=== PATIENT | female | born 1995 | race Caucasian/White ===

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

== ENCOUNTER 2017-06-11 12:50 | Inpatient (IN) | payer OTHER ==
[2017-06-11] MEDS ORDERED: AMPICILLIN - 2 GM in SODIUM CHLORIDE 100 ML IVPB SCH (13:15)
[2017-06-11] MEDS ORDERED: TUBERCULIN PPD 5 TU/0.1ML SYRINGE (IN PATIENT USE ONLY) ID ONE (13:23)
[2017-06-11] MEDS ORDERED: BUTORPHANOL TARTRATE 1 MG/ML VIAL IVPUSH ONE (13:30)
[2017-06-11] MEDS ORDERED: PROMETHAZINE HCL 25 MG/1 ML VIAL IVPUSH ONE (13:30)
[2017-06-11] MEDS ORDERED: AMPICILLIN SODIUM 2 GM VIAL ONE (13:52)
[2017-06-11] MEDS ORDERED: PROMETHAZINE HCL 25 MG/1 ML VIAL ONE (13:52)
[2017-06-11] MEDS ORDERED: BUTORPHANOL TARTRATE 1 MG/ML VIAL ONE ×2 (13:52)
[2017-06-11] MEDS ORDERED: DEXTROSE 5%-LACTATED RINGERS 1,000 ML IV SCH (14:15)
[2017-06-11 14:23] LABS: BASO % 0.3 % (0-2.0); EOS % 0.4 % (0-4.5); HEMATOCRIT 36.9 % (32.4-45.2); HEMOGLOBIN 12.1 GM/dL (10.7-15.3); LYMPH % 12.1 % (8-40); MCH 31.2 pg (25.7-33.7); MCHC 32.9 g/dl (32.0-36.0); MEAN CELL VOLUME 94.8 fl (80-96); MEAN PLT VOLUME 8.5 fl (7.5-11.1); MONO % 5.8 % (3.8-10.2); NEUT % 81.4 % (42.8-82.8); PLATELET COUNT 274 K/MM3 (134-434); RBC 3.89 M/mm3 (3.60-5.2); WHITE BLOOD COUNT 10.5 K/mm3 (4.0-10.0)
[2017-06-11 14:31] VITALS: BMI 27.8
[2017-06-11 14:38] LABS: INR 0.97 (0.82-1.09)
[2017-06-11 14:52] LABS: ANION GAP 7 (8-16); BLOOD UREA NITROGEN 7 mg/dL (7-18); CALCIUM 8.6 mg/dL (8.5-10.1); CHLORIDE 105 mmol/L (98-107); CO2 27 mmol/L (21-32); CREATININE 0.7 mg/dL (0.55-1.02); GLUCOSE,RANDOM 127 mg/dL (74-106); POTASSIUM 3.7 mmol/L (3.5-5.1); SODIUM 139 mmol/L (136-145)
[2017-06-11] MEDS: ELECTROLYTE-148 SOLN 1,000 ML IV SCH (17:15)
[2017-06-11] MEDS: AMPICILLIN - 1 GM in SODIUM CHLORIDE 100 ML IVPB SCH ×2 (17:15→21:15)
[2017-06-11] MEDS ORDERED: FENTANYL/BUPIVACAINE/NS/PF - PCEA - 50 ML DISP.SYRIN EP ONE (20:08)
--- NOTE | 2017-06-11 20:24 | HP ---
Past Medical History - Primary Care Physician PCP:: Tray Treviño - Admission Chief Complaint: 21yo P0 with at EGA 40w 3d admitted with spontaneous labor. Pt with poor pain tolerance and required pain management. History of Present Illness: Painful contractions since this afternoon. 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's, CVA, Dementia, Migraine, Multiple Sclerosis, Peripheral Neuropathy, Parkinson's, Seizure, Syncope, TIA, Vertigo, Other Cardiovascular: No: AFIB, Aneurysm, Aortic Insufficiency, Aortic Stenosis, CAD, CHF, Deep Vein Thrombosis, HTN, Hyperlipdemia, [place], Mitral Insufficiency, Mitral Stenosis, Murmur, Pulmonary Hypertension, Other Pulmonary: No: Asthma, Bronchitis, Cancer, COPD, O2 Dependent, Pneumonia, Previously Intubated, Pulmonary Embolus, Pulmonary Fibrosis, Sleep Apnea, Other Gastrointestinal: No: Ascites, Cancer, Constipation, Crohn's Disease, Diverticulitis, Diverticulosis, Esophageal Varices, Gastritis, GERD, GI Bleed, Hemorrhoids, Hiatal Hernia, Inflamatory Bowel Disease, Irritable Bowel Disease, Pancreatitis, Peptic Ulcer Disease, Ulcerative Colitis, Other Hepatobiliary: No: Cirrhosis, Cholelithiasis, Cholecystitis, Choledocholithiasis , Hepatitis A, Hepatitis B, Hepatitis C, Other Renal/: No: Renal Failure, Renal Inusuff, BPH, Cancer, Hematuria, Hemodialysis , Neurogenic Bladder, Renal Calculi, UTI, Other Reproductive: No: Ectopic , Endometriosis, Fibroids, PID, Polycystic Ovary Syndrome, Postmenopausal, Other ...: 1 ...Para: 0 ...LMP: 09/06/16 ... Weeks Gestation by Dates: 40.3 ...EDC by Dates: 06/13/17 ...EDC by Sono: 06/08/17 Heme/Onc: No: Anemia, B12 Deficiency, Bleeding Disorder, Cancer, Current Chemotherapy, Current Radiation Therapy, Hemochromatosis, Hypercoaguable State, Myeloproliferative Synd, Sickle Cell Disease, Sickle Cell Trait, Thrombocytopenia, Other Infectious Disease: No: AIDS, C-Diff, Herpes Zoster, HIV, MRSA, STD's, Tuberculosis, VREF, Other Psych: No: Addictions, Anxiety, Bipolar, Depression, Panic, Psychosis, Schizophrenia, Other Musculoskeletal: No: Bursitis, Chronic low back pain, Hemiparesis, Hemiplegia, Osteoarthritis, Paraplegia, Other Rheumatology: No: Fibromyalgia, Gout, Lupus, Rheumatoid Arthritis, Sarcoidosis, Vasculitis, Other ENT: No: Allergic Rhinitis, Sinusitis, Other Dermatology: No: Basal Cell, Cellulitis, Eczema, Melanoma, Psoriasis, Squamous Cell, Other - Past Surgical History Past Surgical History: Yes: None Hx Myomectomy: No Hx Transabdominal Cerclage: No - Smoking History Smoking history: Former smoker Have you smoked in the past 12 months: No Aproximately how many cigarettes per day: 0 If you are a former smoker, when did you quit?: 10/2014 - Alcohol/Substance Use Hx Alcohol Use: No History of Substance Use: reports: None - Social History Usual Living Arrangement: Yes: With Parent ADL: Independent History of Recent Travel: No Home Medications - Allergies Allergies/Adverse Reactions: Allergies Allergy/AdvReac Type Severity Reaction Status Date / Time shellfish derived Allergy Hives Verified 04/13/17 14:13 - Home Medications Home Medications: Ambulatory Orders NK [No Known Home Medication] 10/18/16 Family Disease History - Family Disease History Family History: Unremarkable Review of Systems - Review of Systems Constitutional: reports: Other (painful contractions) Eyes: reports: No Symptoms HENT: reports: No Symptoms Neck: reports: No Symptoms Cardiovascular: reports: No Symptoms Respiratory: reports: No Symptoms Gastrointestinal: reports: No Symptoms Genitourinary: reports: No Symptoms Breasts: reports: No Symptoms Reported Musculoskeletal: reports: No Symptoms Integumentary: reports: No Symptoms Neurological: reports: No Symptoms Endocrine: reports: No Symptoms Hematology/Lymphatic: reports: No Symptoms Psychiatric: reports: No Symptoms Pain Intensity: 9 Physical Exam - Maternity Vital Signs: Vital Signs Temperature 98.1 F 06/11/17 18:00 Pulse Rate 82 06/11/17 20:00 Respiratory Rate 18 06/11/17 20:00 Blood Pressure 106/63 06/11/17 20:00 O2 Sat by Pulse Oximetry (%) Constitutional: Yes: Well Nourished, No Distress, Calm Eyes: Yes: WNL, Conjunctiva Clear HENT: Yes: WNL, Atraumatic, Normocephalic Neck: Yes: WNL, Supple, Trachea Midline Cardiovascular: Yes: WNL, Regular Rate and Rhythm Lungs: Clear to auscultation, Normal air movement - Abdominal Exam/OB Fundal Height: 39 Number of Fetuses: Single Presentation: Vertex Contractions: Yes Regularity: Irregular Intensity: Mild/Mod Monitor Mode: External Heart Rate (range): 140 Heart Rate Location: Midline Category: I Accelerations: Non-Uniform Decelerations: None - Vaginal Exam/OB Vaginal Bleediing: No Speculum Exam: No Dilatation (cm): 2 Presentation: Vertex/Position - Physical Exam Musculoskeletal: Yes: WNL Extremities: Yes: WNL Edema: No Integumentary: Yes: WNL ...Motor Strength: WNL Psychiatric: Yes: WNL, Alert, Oriented - Labs Lab Results: CBC, BMP 06/11/17 13:54 06/11/17 13:54 Hemorrhage Risk Assessment - Risk Factors Medium Risk Factors: Yes: None High Risk Factors: Yes: None Risk Score: 1 Risk Level: Medium Risk Imaging - Results Ultrasound: Report Reviewed Assessment/Plan 21yo P0 with at EGA 40w 3d admitted with spontaneous labor. Pt with poor pain tolerance and required pain management. The pt was offered IV sedation which she requested. Plan to monitor labor progress.
[2017-06-11] MEDS: FENTANYL/BUPIVACAINE/NS/PF - PCEA - 50 ML DISP.SYRIN EP SCH (20:50)
[2017-06-11] MEDS ORDERED: NALOXONE HCL 0.4 MG/ML VIAL IVPUSH PRN (21:00)
--- NOTE | 2017-06-11 21:43 | PN ---
Ante-Partal Exam - Subjective Subjective: No complaints, s/p epidural Vital Signs: Vital Signs Temperature 98.1 F 06/11/17 18:00 Pulse Rate 82 06/11/17 20:00 Respiratory Rate 18 06/11/17 20:00 Blood Pressure 106/63 06/11/17 20:00 O2 Sat by Pulse Oximetry (%) Bleeding: No Headache: No Visual changes: No Right upper quadrant pain: No Pain (scale 1-10): 0 - Contractions Contractions: Yes Regularity: Irregular Intensity: Mild/Mod Monitor Mode: External - Exam during Labor Heart Rate: 150 Variability: Moderate Heart Rate Location: Midline Category: I Monitor Accelerations: Present Monitor Decelerations: None Exam: Vaginal Dilatation (cm): 2 Effacement (%): 80 Amniotic Membrane Status: Intact Presentation: Vertex Station: -2 - Intrapartum Hemorrhage Risk Medium Risk Factors: None High Risk Factors: None Risk Score: 0 Risk Level: Low Risk - Assessment/Plan Assessment/Plan: 21yo P0 with spontaneous latent labor. Minimal cervical change since admission. Contractions are irregular. Plan to start pitocin. Fetus with Category I tracing
[2017-06-11] MEDS ORDERED: OXYTOCIN 15 UNITS/ LR 250 ML 15 UNIT/250 ML INFUS.BAG IVPB SCH (21:45)
[2017-06-12] MEDS ORDERED: FENTANYL/BUPIVACAINE/NS/PF - PCEA - 50 ML DISP.SYRIN EP ONE ×2 (00:23→04:39)
[2017-06-12] MEDS: FENTANYL/BUPIVACAINE/NS/PF - PCEA - 50 ML DISP.SYRIN EP SCH ×2 (00:27→04:41)
[2017-06-12] MEDS: ELECTROLYTE-148 SOLN 1,000 ML IV SCH (01:06)
[2017-06-12] MEDS: AMPICILLIN - 1 GM in SODIUM CHLORIDE 100 ML IVPB SCH ×2 (01:15→05:15)
--- NOTE | 2017-06-12 03:37 | PN ---
Ante-Partal Exam - Subjective Subjective: Pt had a spontaneous bradycardia x 5min. Pt has not been on Pitocin and is braden spontaneously. Oxygen had been administered by mask. Positional changes were done to treat bradycardia with good response. BP 116/65. Vital Signs: Vital Signs Temperature 98.9 F 06/12/17 03:00 Pulse Rate 64 06/12/17 01:45 Respiratory Rate 18 06/12/17 01:45 Blood Pressure 115/50 06/12/17 01:45 O2 Sat by Pulse Oximetry (%) 100 06/12/17 01:45 Bleeding: No Headache: No Visual changes: No Right upper quadrant pain: No Pain (scale 1-10): 0 - Contractions Contractions: Yes Regularity: Regular (q2-3min) Intensity: Unaware Monitor Mode: External (AROM done and FSE applied) - Exam during Labor Heart Rate: 140 Variability: Moderate Exam: Vaginal Dilatation (cm): 7 Effacement (%): 90 Amniotic Membrane Status: Ruptured (AROM) Amniotic Fluid: Clear Presentation: Vertex Station: -2 Remarks: FSE applied, FHR recovered to normal - Intrapartum Hemorrhage Risk Medium Risk Factors: None High Risk Factors: None Risk Score: 0 Risk Level: Low Risk - Assessment/Plan Assessment/Plan: 21yo P0 in spontaneous active labor. Bradycardia x 5min recovered with positional changes. Plan to monitor tracing and labor progress.
[2017-06-12] MEDS ORDERED: ELECTROLYTE-148 SOLN 500 ML IV ONE (06:30)
[2017-06-12] MEDS ORDERED: OXYTOCIN 20 UNITS in 0.9% NS 20 UNIT/1,000 ML INFUS.BAG IV ONE (07:04)
[2017-06-12] MEDS ORDERED: LIDOCAINE HCL 1% PRESERVATIVE FREE - 30ML VIAL ONE (07:06)
[2017-06-12] MEDS ORDERED: ELECTROLYTE-148 SOLN 500 ML IV SCH (07:30)
[2017-06-12 08:26] LABS: ARTERIAL BLOOD GAS PCO2 66.2 mmHg (35-45); ARTERIAL BLOOD GAS PO2 15.7 mmHg (80-100); ARTERIAL BLOOD GAS pH 7.23 (7.35-7.45)
[2017-06-12 08:27] LABS: VENOUS PH 7.3 (7.32-7.42)
[2017-06-12 08:28] LABS: VENOUS PC02 53.4 mmHg (38-52); VENOUS PO2 19.3 mmHg (28-48)
[2017-06-12] MEDS ORDERED: TUBERCULIN PPD 5 TU/0.1ML SYRINGE (IN PATIENT USE ONLY) ID ONE (08:30)
[2017-06-12] MEDS ORDERED: BENZOCAINE 20% 57 GM BOTTLE TP PRN (09:11)
[2017-06-12] MEDS ORDERED: ACETAMINOPHEN 325 MG TABLET (FP) PO PRN (09:11)
[2017-06-12] MEDS ORDERED: BISACODYL 10 MG SUPP.RECT RC PRN (09:11)
[2017-06-12] MEDS ORDERED: METHYLERGONOVINE MALEATE 0.2 MG/1 ML AMP IM PRN (09:11)
[2017-06-12] MEDS ORDERED: WITCH HAZEL 50% (TUCKS) 40 PAD/JAR PAD TP PRN (09:11)
[2017-06-12] MEDS ORDERED: BENZOCAINE 28 GM HEMORRHOIDAL OINTMENT TP PRN (09:11)
--- NOTE | 2017-06-12 09:13 | PN ---
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 Tight Nuchal cord x 1.
[2017-06-12] MEDS ORDERED: OXYTOCIN 20 UNITS in 0.9% NS 20 UNIT/1,000 ML INFUS.BAG IV SCH (09:15)
[2017-06-12] MEDS: PRENATAL VITAMINS W/ FOLIC ACID TABLET (FP) PO SCH (11:53)
[2017-06-13 07:39] LABS: BASO % 0.3 % (0-2.0); EOS % 1.5 % (0-4.5); HEMATOCRIT 33.4 % (32.4-45.2); HEMOGLOBIN 10.9 GM/dL (10.7-15.3); LYMPH % 20.5 % (8-40); MCH 31.1 pg (25.7-33.7); MCHC 32.6 g/dl (32.0-36.0); MEAN CELL VOLUME 95.4 fl (80-96); MONO % 6.7 % (3.8-10.2); PLATELET COUNT 237 K/MM3 (134-434); RDW 13.2 % (11.6-15.6)
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
[2017-06-13] MEDS: PRENATAL VITAMINS W/ FOLIC ACID TABLET (FP) PO SCH (10:33)
[2017-06-13] MEDS: IBUPROFEN 600 MG TABLET (FP) PO PRN ×2 (11:57→18:50)
[2017-06-13] MEDS ORDERED: SENNOSIDES/DOCUSATE COMBO (SENNA PLUS) TABLET (UD) PO PRN (22:00)
[2017-06-14 00:05] VITALS: PULSE 61
--- NOTE | 2017-06-14 08:20 | DS ---
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: Vital Signs Temperature 98.3 F 06/13/17 22:00 Pulse Rate 61 06/13/17 22:00 Respiratory Rate 20 06/13/17 22:00 Blood Pressure 121/64 06/13/17 22:00 O2 Sat by Pulse Oximetry (%) 99 06/12/17 07:00 Constitutional: Yes: Well Nourished, No Distress, Calm Eyes: Yes: WNL, Conjunctiva Clear, EOM Intact HENT: Yes: WNL, Atraumatic, Normocephalic Neck: Yes: WNL, Supple, Trachea Midline Cardiovascular: Yes: WNL, Regular Rate and Rhythm Respiratory: Yes: WNL, Regular, CTA Bilaterally Gastrointestinal: Yes: WNL, Normal Bowel Sounds, Soft ...Rectal Exam: Yes: Deferred Renal/: Yes: WNL ....Post : Yes: Uterus firm, Uterus non-tender, Slight lochia rubra Breast(s): Yes: WNL Musculoskeletal: Yes: WNL Extremities: Yes: WNL Integumentary: Yes: WNL Neurological: Yes: WNL, Alert, Oriented ...Motor Strength: WNL Psychiatric: Yes: WNL, Alert, Oriented Labs: CBC, BMP 06/13/17 07:00 06/11/17 13:54 Delivery - Delivery Vaginal Delivery: No Problems, Spontaneous Type of Anesthesia: Epidural Episiotomy/Laceration: None EBL (cc): 300 Delivery, Single - Stages of Labor Date 1st Stage Initiatied: 06/11/17 Time 1st Stage Initiated: 14:00 Date 2nd Stage Initiated: 06/12/17 Time 2nd Stage Initiated: 07:15 Date of Delivery: 06/12/17 Time of Delivery: 07:37 Time Placenta Delivered: 07:45 Placenta: Yes: Spontaneous, Normal Configuration - Condition of 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 Tight Nuchal cord x 1. Discharge Summary Reason For Visit: LABOR Post term Procedures: Principal: Hospital Course: Normal recovery Condition: Good - Instructions Diet, Activity, Other Instructions: Physical activity Resume your normal everyday activity as tolerated no heavy lifting or exercise until seen by your surgeon. You may walk unlimited zohra of and climb stairs. You may resume driving the car when you feel safe and comfortable behind the wheel. No sexual activity as instructed. Wound care If you have a bandage, leave it on, and keep dry for 48-72 hours. After that time discard the outer bandage. If they are tapes on the skin under the out of bandage leave them in place. They will peel off in the next 7 to 10 days. Do Not Peel them off. You may shower the day after surgery. If there are tapes present on the skin, you may shower over them. Diet There are no dietary restrictions. Eat healthy, high-fiber foods. Drink 6 to 8 glasses of liquid each day. This will assist in keeping your bowels are regular. Pain management You may take Tylenol or acetaminophen or Ibuprofen (for example, Motrin, Advil etc.) from my pain prescription medication is ordered should be taken as prescribed for moderate to severe pain. Call MD for any of the following: Severe pain not relieved by medication Fever of 101 or higher Excessive bleeding or drainage on dressing Inability to urinate Referrals: Tray Treviño MD [Staff Physician] - Disposition: HOME - Home Medications Comprehensive Discharge Medication List: Ambulatory Orders Ibuprofen [Motrin -] 600 mg PO QID #28 tablet 06/13/17
[2017-06-14 09:03] VITALS: BP 113/53; TEMP 97.9
[2017-06-14] MEDS: PRENATAL VITAMINS W/ FOLIC ACID TABLET (FP) PO SCH (09:17)
== END 2017-06-14 12:50 | disposition home or self-care (01) | DRG 775 ==
LOC: JLDR 12:50 → J3W 06-12 10:05
PROVIDERS: ADMIT Obstetrics & Gynecology; ATTEND Obstetrics & Gynecology
PROC: 10E0XZZ Delivery of Products of Conception, External Approach (ICD-10-PCS; principal; 2017-06-12)
DX: O48.0 Post-term pregnancy (principal); O69.1XX0 Labor and delivery complicated by cord around neck, with compression, not applicable or unspecified; O26.893 Other specified pregnancy related conditions, third trimester; Z87.891 Personal history of nicotine dependence; Z3A.40 40 weeks gestation of pregnancy; Z37.0 Single live birth
CPT/HCPCS: 36415; 36600; 59409; 80048; 82803; 85025; 85610; 85730; 86593; 86850; 86900; 86901

== ENCOUNTER 2018-05-11 21:14 | Emergency (ER) | payer SELFPAY ==
[2018-05-11] MEDS ORDERED: IBUPROFEN 600 MG TABLET (FP) PO ONE ×2 (21:31→21:34)
[2018-05-11 21:34] VITALS: BP 128/53; PULSE 96; TEMP 100; BMI 23.5
--- NOTE | 2018-05-11 21:34 | PDOC ---
Rapid Medical Evaluation Time Seen by Provider: 05/11/18 21:29 Medical Evaluation: Allergies Allergy/AdvReac Type Severity Reaction Status Date / Time shellfish derived Allergy Hives Verified 04/13/17 14:13 05/11/18 21:32 The patient presents with a chief complaint of: fever, chills, throat and ear pain since this am, also w/ intermittent back pain I have performed a brief in-person evaluation of this patient; Pertinent physical exam findings: 100.0 oral temp, mild erythema to post 3+ tonsils I have ordered the following: ua, ucx, rapid strep, influenza, motrin The patient will proceed to the ED for further evaluation. Discharge Disposition - Diagnosis Throat pain - Referrals - Patient Instructions - Post Discharge Activity
[2018-05-11 21:53] LABS: URINE APPEARANCE CLEAR; URINE BILIRUBIN NEGATIVE (<2.0 mg/dL); URINE COLOR YELLOW; URINE GLUCOSE (UA) NEGATIVE (NEGATIVE); URINE KETONE NEGATIVE (NEGATIVE); URINE LEUK ESTERASE NEGATIVE (NEGATIVE); URINE NITRITE NEGATIVE (NEGATIVE); URINE PROTEIN NEGATIVE (NEGATIVE)
[2018-05-11] MEDS ORDERED: SODIUM CHLORIDE 1,000 ML IV STA (22:06)
--- NOTE | 2018-05-11 22:42 | PDOC ---
History of Present Illness - General Chief Complaint: Lightheaded Stated Complaint: EAR ACHE Time Seen by Provider: 05/11/18 21:29 History Source: Patient Exam Limitations: No Limitations - History of Present Illness Initial Comments: 05/11/18 22:43 Best Contact: PCP: Dr. Maddy Jimenez Pmhx: Denies Pshx: Denies Allergies: NKDA FH:N/A Social Hx: Cigarettes/ Denies Alcohol/ Denies Drugs/Denies LMP: 04/21/2018 22-year-old female presents to the emergency department complaining of left- sided air ache with a sore throat 2 days with subjective fever but denies chills, nausea/vomiting, headache, dizziness, lightheadedness, facial pains, difficulty swallowing, neck stiffness/pain, back pains, chest pain, shortness of breath, abdominal pains, flank pains, urinary symptoms: Frequency/urgency/ hesitancy, hematuria, extremity numbness or tingling sensation. Patient states she was given ibuprofen 600 mg and feels a lot better. Patient is currently living in a long-term with her [id number] baby and her baby's father who she says are not sick. Patient states she hasn't been drinking and eating enough today but felt a lot better after having some apple juice that she brought to the emergency department. Past History - Past Medical History Allergies/Adverse Reactions: Allergies Allergy/AdvReac Type Severity Reaction Status Date / Time shellfish derived Allergy Hives Verified 04/13/17 14:13 Home Medications: Ambulatory Orders Ibuprofen [Motrin -] 600 mg PO QID #28 tablet 06/13/17 Asthma: No Cancer: No Cardiac Disorders: No COPD: No Diabetes: No HTN: No Seizures: No Thyroid Disease: No - Immunization History Immunization Up to Date: Yes - Suicide/Smoking/Psychosocial Hx Smoking Status: No Smoking History: Never smoked Have you smoked in the past 12 months: No Number of Cigarettes Smoked Daily: 0 If you are a former smoker, when did you quit?: 10/2014 Information on smoking cessation initiated: No Hx Alcohol Use: No Drug/Substance Use Hx: No Substance Use Type: None Hx Substance Use Treatment: No Review of Systems - Review of Systems Able to Perform ROS?: Yes Comments:: 05/11/18 22:46 CONSTITUTIONAL: Absent: fever, chills, diaphoresis, generalized weakness, malaise, loss of appetite HEENT: Left earache, throat pain Absent: rhinorrhea, nasal congestion, throat swelling, difficulty swallowing, mouth swelling,eye pain, visual Changes CARDIOVASCULAR: Absent: chest pain, loss of consciousness, palpitations, irregular heart rate, peripheral edema RESPIRATORY: Absent: cough, shortness of breath, dyspnea with exertion, orthopnea, wheezing, stridor, hemoptysis GASTROINTESTINAL: Absent: abdominal pain, abdominal distension, nausea, vomiting, diarrhea, constipation, melena, hematochezia GENITOURINARY: Absent: dysuria, frequency, urgency, hesitancy, hematuria, flank pain, genital pain MUSCULOSKELETAL: Absent: myalgia, arthralgia, joint swelling SKIN: Absent: rash, itching, pallor HEMATOLOGIC/IMMUNOLOGIC: Absent: easy bleeding, easy bruising, lymphadenopathy, frequent infections ENDOCRINE: Absent: unexplained weight gain, unexplained weight loss, heat intolerance, cold intolerance NEUROLOGIC: Absent: headache, focal weakness or paresthesias, dizziness, unsteady gait, seizure, mental status changes, bladder or bowel incontinence PSYCHIATRIC: Absent: anxiety, depression, suicidal or homicidal ideation, hallucinations. Is the patient limited Kazakh proficient: No *Physical Exam - Vital Signs Last Vital Signs Temp Pulse Resp BP Pulse Ox 100 F H 96 H 18 128/53 L 100 05/11/18 21:30 05/11/18 21:30 05/11/18 21:30 05/11/18 21:30 05/11/18 21:30 - Physical Exam Comments: 05/11/18 22:47 GENERAL: Well developed, well nourished. Awake and alert. No acute distress. HEENT: Tonsillar erythema with mild swelling, neg kissing tonsils Normocephalic, atraumatic. PERRLA, EOMI. No conjunctival pallor. Sclera are non- icteric. Moist mucous membranes. NECK: Supple. Full ROM. No JVD. Carotid pulses 2+ and symmetric, without bruits. No thyromegaly. No lymphadenopathy. CARDIOVASCULAR: Regular rate and rhythm. No murmurs, rubs, or gallops. Distal pulses are 2+ and symmetric. PULMONARY: No evidence of respiratory distress. Lungs clear to auscultation bilaterally. No wheezing, rales or rhonchi. ABDOMINAL: Soft. Non-tender. Non-distended. No rebound or guarding. No organomegaly. Normoactive bowel sounds. MUSCULOSKELETAL Normal range of motion at all joints. No bony deformities or tenderness. No CVA tenderness. EXTREMITIES: No cyanosis. No clubbing. No edema. No calf tenderness. SKIN: Warm and dry. Normal capillary refill. No rashes. No jaundice. NEUROLOGICAL: Alert, awake, appropriate. Cranial nerves 2-12 intact. No deficits to light touch and temperature in face, upper extremities and lower extremities. No motor deficits in the in face, upper extremities and lower extremities. Normoreflexic in the upper and lower extremities. Normal speech. Toes are down- going bilaterally. Gait is normal without ataxia. PSYCHIATRIC: Cooperative. Good eye contact. Appropriate mood and affect. Moderate Sedation - Procedure Monitoring Vital Signs: Procedure Monitoring Vital Signs Temperature 100 F H 05/11/18 21:30 Pulse Rate 96 H 05/11/18 21:30 Respiratory Rate 18 05/11/18 21:30 Blood Pressure 128/53 L 05/11/18 21:30 O2 Sat by Pulse Oximetry (%) 100 05/11/18 21:30 ED Treatment Course - ADDITIONAL ORDERS Additional order review: Laboratory Results 05/11/18 21:42 Urine Color Yellow Urine Appearance Clear Urine pH 6.0 Ur Specific [place] 1.026 Urine Protein Negative Urine Glucose (UA) Negative Urine Ketones Negative Urine Blood Negative Urine Nitrite Negative Urine Bilirubin Negative Urine Urobilinogen 2.0 H Ur Leukocyte Esterase Negative - Medications Given in the ED: ED Medications Discontinued Medications Generic Name Dose Route Start Last Admin Trade Name Freq PRN Reason Stop Dose Admin Ibuprofen 600 mg 05/11/18 21:31 05/11/18 21:44 Motrin - PO 05/11/18 21:32 600 mg ONCE ONE Administration *DC/Admit/Observation/Transfer Diagnosis at time of Disposition: Throat pain, Earache on left - Discharge Dispostion Disposition: HOME Condition at time of disposition: Stable Decision to Admit order: No - Referrals Referrals: Celestine Balderas MD [Staff Physician] - Samm Cespedes MD [Staff Physician] - - Patient Instructions Printed Discharge Instructions: DI for Ear Pain-Adult, DI for Viral Pharyngitis Additional Instructions: Tylenol alternating with Motrin every 6 hours as needed for pain/fever Increase fluids Follow up with ENT/Dr. Coy as listed on your discharge this week Return back to the ER for severe/persistent or worsening symptoms As per our discussion, you will be returning to your mother's home so she can help you with your baby and make sure you take enough fluids. - Post Discharge Activity Progress Note - Progress Note Progress Note: Patient states she is not drinking enough fluids and because she lives in the long-term, she will need need to state that she should go home with her mother as per our discussion on the discharge sheet and therefore she will be kicked out of the long-term. Patient states because her urine and rapid strep was negative, she will go home and declined further workup.
== END 2018-05-11 23:15 | disposition home or self-care (01) ==
LOC: JER 21:14
CPT/HCPCS: 81003; 87070; 87086; 87804; 87880; 99283-25

== ENCOUNTER 2018-08-27 12:02 | Inpatient (IN) | payer OTHER ==
[2018-08-27 12:07] VITALS: BMI 23.2
--- NOTE | 2018-08-27 12:51 | PDOC ---
History of Present Illness - General Chief Complaint: Vaginal Bleeding Stated Complaint: MISCARAIGE Time Seen by Provider: 08/27/18 12:50 History Source: Patient Exam Limitations: No Limitations - History of Present Illness Initial Comments: 22 yo F with no reported medical history presents to the ER After her OB doc - Dr. Treviño - suggested she come to the ER to be evaluated for a likely miscarriage. She states that on August 06 she had an US which showed she was 5.5 weeks but there was no heartbeat. She then recently had another US which showed a blood clot between her placenta and the uterus and they suspected an IUFD. The patient has been experiencing a significant amount of nausea and vomiting but reports no difficulty with eating 3 large meals a day. She also endorses awful lower back pain which is anohter reason she wants to be evaluated in the ED. She denies any passage of clots, blood, or any abnormal vaginal discharge. She is unsure of the exact date of her LMP but believes it was in the beginning of May. The patient reports that Dr. Treviño asked to have him paged once she arrive to the ED. She denies having any chest pain, SOB, difficulty breathing, dysuria, frequency , or urgency. LMP: Early May PCP: Dr. 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 NKDA Past History - Past Medical History Allergies/Adverse Reactions: Allergies Allergy/AdvReac Type Severity Reaction Status Date / Time shellfish derived Allergy Hives Verified 08/27/18 12:04 Home Medications: Ambulatory Orders Nitrofurantoin Monohyd/M-Cryst [Macrobid -] 100 mg PO BID #14 capsule 08/27/18 metroNIDAZOLE [Flagyl -] 500 mg PO BID #14 tablet 08/27/18 Asthma: No Cancer: No Cardiac Disorders: No COPD: No Diabetes: No HTN: No Seizures: No Thyroid Disease: No - Reproductive History Is Patient Now?: Yes Cervical CA: No Dysfunctional Uterine Bleeding: No Ectopic : No Endometrial CA: No Polycystic Ovaries: No Therapeutic (s) & number: Yes (1) Tubal Ligation: No - Immunization History Immunization Up to Date: Yes - Suicide/Smoking/Psychosocial Hx Smoking Status: No Smoking History: Never smoked Have you smoked in the past 12 months: No Number of Cigarettes Smoked Daily: 0 If you are a former smoker, when did you quit?: 10/2014 Hx Alcohol Use: No Drug/Substance Use Hx: No Substance Use Type: None Hx Substance Use Treatment: No Review of Systems - Review of Systems Able to Perform ROS?: Yes Comments:: CONSTITUTIONAL: Absent: fever, no chills, no fatigue EYES: Absent: visual changes ENT: Absent: ear pain, no sore throat CARDIOVASCULAR: Absent: chest pain, no palpitations RESPIRATORY: Absent: cough, no SOB GI: Present: Abdominal pain, nausea, vomiting Absent: no constipation, no diarrhea GENITOURINARY: Absent: dysuria, no frequency, no hematuria MUSKULOSKELETAL: Present: Back pain Absent: no arthralgia, no myalgia SKIN: Absent: rash NEURO: Absent: headache *Physical Exam - Vital Signs Last Vital Signs Temp Pulse Resp BP Pulse Ox 98.2 F 62 16 104/52 L 100 08/27/18 12:05 08/27/18 12:05 08/27/18 12:05 08/27/18 12:05 08/27/18 12:05 - Physical Exam Comments: GENERAL: Well-appearing, well-nourished. No apparent distress. HEENT: Normocephalic, atraumatic. PERRL, EOM intact. CARDIOVASCULAR: Normal S1, S2. Regular rate and rhythm. PULMONARY: No evidence of respiratory distress. Lungs clear to auscultation bilaterally. No wheezing, rales or rhonchi. ABDOMEN: There is tenderness in the lower R and L regions of the abdomen. Soft, non- distended. EXTREMITIES: Normal ROM in all four extremities. No gross deformities. SKIN: Warm, dry. No rash NEUROLOGICAL: No focal neurological deficits. Female Pelvic Exam: positive: normal external exam, cervical os closed, normal adnexa, normal size ovaries. negative: CMT, discharge, lesions, Bartholin mass , adnexal tenderness, vaginal bleeding ED Treatment Course - LABORATORY CBC & Chemistry Diagram: 08/27/18 13:57 08/27/18 13:57 Medical Decision Making - Medical Decision Making 22 yo F with no reported medical history presents to the ER After her OB doc - Dr. Treviño - suggested she come to the ER to be evaluated for a likely miscarriage. She states that on August 06 she had an US which showed she was 5.5 weeks but there was no heartbeat. She then recently had another US which showed a blood clot between her placenta and the uterus and they suspected an IUFD. The patient has been experiencing a significant amount of nausea and vomiting but reports no difficulty with eating 3 large meals a day. She also endorses awful lower back pain which is anohter reason she wants to be evaluated in the ED. She denies any passage of clots, blood, or any abnormal vaginal discharge. She is unsure of the exact date of her LMP but believes it was in the beginning of May. The patient reports that Dr. Treviño asked to have him paged once she arrive to the ED. She denies having any chest pain, SOB, difficulty breathing, dysuria, frequency , or urgency. DDx IBNLT: Miscarriage, missed , inevitable , ectopic , molar . Plan: Labs, Urine, TVUS, analgesia, OB consult - Dr. Treviño, re-assess Speaking with Dr. Treviño: He said she indeed does not have a viable . She had an US on August 20 which showed IUP 5 weeks and 6 days consistent with a missed . Dr. Treviño says if she wants a D&C he can do it later today. If she prefers to do medical management give her tylenol and motrin and send her home. After workup in ED will call Dr. Treviño and have her admitted to OB for a D&C later today. Dr. Treviño said the OR has an opening around 5 pm so he will do the D&C on her then. Will admit patient to OB for Dr. Treviño *DC/Admit/Observation/Transfer Diagnosis at time of Disposition: Missed , IUFD (intrauterine ) - Discharge Dispostion Condition at time of disposition: Good Decision to Admit order: Yes - Referrals - Patient Instructions - Post Discharge Activity
[2018-08-27] MEDS ORDERED: SODIUM CHLORIDE 1,000 ML IV STA (13:06)
[2018-08-27] MEDS ORDERED: ONDANSETRON 4 MG/2 ML VIAL IVPUSH ONE (13:08)
[2018-08-27] MEDS ORDERED: ACETAMINOPHEN 325 MG TABLET (FP) PO ONE (13:10)
[2018-08-27] MEDS ORDERED: ONDANSETRON 4 MG/2 ML VIAL ONE (13:45)
[2018-08-27] MEDS ORDERED: ACETAMINOPHEN 325 MG TABLET (FP) ONE (13:45)
[2018-08-27 14:08] LABS: BASO % 0.6 % (0-2.0); EOS % 1.2 % (0-4.5); HEMATOCRIT 37.9 % (32.4-45.2); HEMOGLOBIN 12.8 GM/dL (10.7-15.3); LYMPH % 30.4 % (8-40); MCH 31.5 pg (25.7-33.7); MCHC 33.9 g/dl (32.0-36.0); MEAN PLT VOLUME 10.2 fl (7.5-11.1); MONO % 6.3 % (3.8-10.2); NEUT % 61.5 % (42.8-82.8); PLATELET COUNT 215 K/MM3 (134-434); RBC 4.07 M/mm3 (3.60-5.2); RDW 13.6 % (11.6-15.6); WHITE BLOOD COUNT 5.3 K/mm3 (4.0-10.0)
[2018-08-27 14:10] LABS: HCG,QUALITATIVE URINE Positive
[2018-08-27 14:12] LABS: EPI CELLS 6.5 /HPF (0-5); URINE APPEARANCE CLEAR; URINE BILIRUBIN NEGATIVE (NEGATIVE); URINE CASTS 10 /hpf (0-8); URINE COLOR YELLOW; URINE GLUCOSE (UA) NEGATIVE (NEGATIVE); URINE KETONE NEGATIVE (NEGATIVE); URINE LEUK ESTERASE 1+ (NEGATIVE); URINE NITRITE NEGATIVE (NEGATIVE); URINE PROTEIN NEGATIVE (NEGATIVE); URINE RBC 7 /hpf (0-4); URINE WBC 10 /hpf (0-5)
[2018-08-27 14:20] LABS: INR 1.07 (0.83-1.09); PROTHROMBIN TIME (PATIENT) 12.6 SEC (9.7-13.0)
[2018-08-27 14:36] LABS: ALBUMIN 3.5 g/dl (3.4-5.0); ALK PHOS 46 U/L (45-117); ANION GAP 5 MMOL/L (8-16); BILIRUBIN,TOTAL 0.9 mg/dL (0.2-1); BLOOD UREA NITROGEN 7 mg/dL (7-18); CALCIUM 8.9 mg/dL (8.5-10.1); CHLORIDE 104 mmol/L (98-107); CO2 26 mmol/L (21-32); CREATININE 0.6 mg/dL (0.55-1.3); GLUCOSE,RANDOM 84 mg/dL (74-106); POTASSIUM 4.4 mmol/L (3.5-5.1); SGOT/AST 12 U/L (15-37); SGPT/ALT 18 U/L (13-61); SODIUM 135 mmol/L (136-145); TOT PROT 6.8 g/dl (6.4-8.2)
--- NOTE | 2018-08-27 14:37 | PDOC ---
Attending Attestation - Resident Resident Name: Samantha Senian - ED Attending Attestation I have performed the following: I have examined & evaluated the patient, The case was reviewed & discussed with the resident, I agree w/resident's findings & plan, Exceptions are as noted - HPI HPI: 08/27/18 14:29 The patient is a 22 year old female with a past medical history of here today for evaluation of likely missed Ab. Patient had recent US that showed demise. Pt reports that since then, she has not passed any clots or had any bleeding. She endorses lower abdominal pain radiating to her lower back. Denies F/C. She notes associated nausea. Patient denies headache, lightheadedness. Denies fever, chills. Denies chest pain, shortness of breath. Denies diarrhea. Denies vaginal discharge. Allergies: shellfish OB: Tray Treviño - Physicial Exam PE: 08/27/18 14:42 "GENERAL: Awake, alert, and fully oriented, in no acute distress. HEAD: No signs of trauma EYES: PERRLA, EOMI, sclera anicteric, conjunctiva clear ENT: Auricles normal inspection, hearing grossly normal, nares patent, oropharynx clear without exudates. Moist mucosa NECK: Nontender, no stepoffs, Normal ROM, supple, no lymphadenopathy, JVD, or masses LUNGS: Breath sounds equal, clear to auscultation bilaterally. No wheezes, and no crackles HEART: Regular rate and rhythm, normal S1 and S2, no murmurs, rubs or gallops ABDOMEN: + suprapubic TTP, normoactive bowel sounds. No guarding, no rebound. No masses EXTREMITIES: Normal range of motion, no edema. No clubbing or cyanosis. No cords, erythema, or tenderness NEUROLOGICAL: Cranial nerves II through XII intact. 5/5 strength and sensation in all extremities, Normal speech, normal gait, normal cerebellar function SKIN: Warm, Dry, normal turgor, no rashes or lesions noted. - Medical Decision Making 08/27/18 14:42 22 F with demise @ approx 6 weeks gestation. Now missed Ab. Dr. Treviño, pt 's Ob, is aware. - Labs - TVUS - Pt to have D&C by Dr. Treviño
[2018-08-27] MEDS ORDERED: PROPOFOL 20 ML ONE (18:34)
[2018-08-27] MEDS ORDERED: LIDOCAINE HCL/PF 2% SDV 5ML VIAL ONE (18:35)
[2018-08-27] MEDS ORDERED: DEXAMETHASONE SOD PHOSPHATE 4 MG/1 ML VIAL ONE (18:35)
[2018-08-27] MEDS ORDERED: MIDAZOLAM HCL 2 MG/2 ML SINGLE DOSE VIAL ONE (18:35)
--- NOTE | 2018-08-27 18:58 | HP ---
Past Medical History - Primary Care Physician PCP:: Tray Treviño - Admission Chief Complaint: 22yo P1 with missed Ab presented to ER with pelvic pain. 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: Alzheimer's, CVA, Dementia, Migraine, Multiple Sclerosis, Peripheral Neuropathy, Parkinson's, Seizure, Syncope, TIA, Vertigo, Other Cardiovascular: No: AFIB, Aneurysm, Aortic Insufficiency, Aortic Stenosis, CAD, CHF, Deep Vein Thrombosis, HTN, Hyperlipdemia, TN, Mitral Insufficiency, Mitral Stenosis, Murmur, Pulmonary Hypertension, Other Pulmonary: No: Asthma, Bronchitis, Cancer, COPD, O2 Dependent, Pneumonia, Previously Intubated, Pulmonary Embolus, Pulmonary Fibrosis, Sleep Apnea, Other Gastrointestinal: No: Ascites, Cancer, Constipation, Crohn's Disease, Diverticulitis, Diverticulosis, Esophageal Varices, Gastritis, GERD, GI Bleed, Hemorrhoids, Hiatal Hernia, Inflamatory Bowel Disease, Irritable Bowel Disease, Pancreatitis, Peptic Ulcer Disease, Ulcerative Colitis, Other Hepatobiliary: No: Cirrhosis, Cholelithiasis, Cholecystitis, Choledocholithiasis , Hepatitis A, Hepatitis B, Hepatitis C, Other Renal/: No: Renal Failure, Renal Inusuff, BPH, Cancer, Hematuria, Hemodialysis , Neurogenic Bladder, Renal Calculi, UTI, Other Reproductive: No: Ectopic , Endometriosis, Fibroids, PID, Polycystic Ovary Syndrome, Postmenopausal, Other ...Para: 1 ... Weeks Gestation by Dates: 6 Heme/Onc: No: Anemia, B12 Deficiency, Bleeding Disorder, Cancer, Current Chemotherapy, Current Radiation Therapy, Hemochromatosis, Hypercoaguable State, Myeloproliferative Synd, Sickle Cell Disease, Sickle Cell Trait, Thrombocytopenia, Other Infectious Disease: No: AIDS, C-Diff, Herpes Zoster, HIV, MRSA, STD's, Tuberculosis, VREF, Other Psych: No: Addictions, Anxiety, Bipolar, Depression, Panic, Psychosis, Schizophrenia, Other Musculoskeletal: No: Bursitis, Chronic low back pain, Hemiparesis, Hemiplegia, Osteoarthritis, Paraplegia, Other Rheumatology: No: Fibromyalgia, Gout, Lupus, Rheumatoid Arthritis, Sarcoidosis, Vasculitis, Other ENT: No: Allergic Rhinitis, Sinusitis, Other Endocrine: No: Alhaji's Disease, Kimball's Disease, Diabetes Insipidus, Diabetes Mellitus, Hyperparathyroidism, Hyperthyroidism, Hypothyroidism, Osteopenia, SIADH, Other Dermatology: No: Basal Cell, Cellulitis, Eczema, Melanoma, Psoriasis, Squamous Cell, Other - Past Surgical History Past Surgical History: Yes: None Hx Myomectomy: No Hx Transabdominal Cerclage: No - Smoking History Smoking history: Never smoked Have you smoked in the past 12 months: No Aproximately how many cigarettes per day: 0 If you are a former smoker, when did you quit?: 10/2014 - Alcohol/Substance Use Hx Alcohol Use: No History of Substance Use: reports: None - Social History Usual Living Arrangement: Yes: With Parent, With Child ADL: Independent History of Recent Travel: No Home Medications - Allergies Allergies/Adverse Reactions: Allergies Allergy/AdvReac Type Severity Reaction Status Date / Time shellfish derived Allergy Hives Verified 08/27/18 12:04 Family Disease History - Family Disease History Family History: Unremarkable Review of Systems - Review of Systems Constitutional: reports: No Symptoms Eyes: reports: No Symptoms HENT: reports: No Symptoms Neck: reports: No Symptoms Cardiovascular: reports: No Symptoms Respiratory: reports: No Symptoms Gastrointestinal: reports: No Symptoms Genitourinary: reports: No Symptoms Breasts: reports: No Symptoms Reported Musculoskeletal: reports: No Symptoms Integumentary: reports: No Symptoms Neurological: reports: No Symptoms Endocrine: reports: No Symptoms Hematology/Lymphatic: reports: No Symptoms Psychiatric: reports: No Symptoms Pain Intensity: 4 Physical Exam-FINANCIAL RECRUITER Vital Signs: Vital Signs Temperature 98.2 F 08/27/18 12:05 Pulse Rate 62 08/27/18 16:21 Respiratory Rate 17 08/27/18 16:21 Blood Pressure 118/59 L 08/27/18 16:21 O2 Sat by Pulse Oximetry (%) 98 08/27/18 16:21 Constitutional: Yes: Well Nourished, No Distress, Calm Eyes: Yes: WNL, Conjunctiva Clear HENT: Yes: WNL, Atraumatic, Normocephalic Neck: Yes: WNL, Supple, Trachea Midline Cardiovascular: Yes: WNL, Regular Rate and Rhythm Respiratory: Yes: WNL, Regular, CTA Bilaterally Gastrointestinal: Yes: WNL, Normal Bowel Sounds, Soft ...Rectal Exam: Yes: Deferred Renal/: Yes: WNL Internal Exam Deferred: No Vaginal Exam: Yes: Normal Cervix: Yes: Normal Uterus: Yes: Normal Adnexa: Not Palpable: Left, Right Breast(s): Yes: WNL Musculoskeletal: Yes: WNL Extremities: Yes: WNL Edema: No Integumentary: Yes: WNL Neurological: Yes: WNL, Alert, Oriented ...Motor Strength: WNL Psychiatric: Yes: WNL, Alert, Oriented Labs: CBC, BMP 08/27/18 13:57 08/27/18 13:57 Imaging - Results Ultrasound: Report Reviewed Assessment/Plan 22yo P1 with pregnanct at EGA 6wks and missed Ab. The pt is admitted for suction /D&C, surgical Tx of missed Ab. We discussed the risks, benefits, and alternatives of surgery. I answered all questions and the pt requested to proceed.
[2018-08-27] MEDS ORDERED: ceFAZolin SODIUM 1 GM VIAL ONE (19:02)
[2018-08-27] MEDS ORDERED: ceFAZolin SODIUM 1 GM VIAL IVPB ONE (19:02)
--- NOTE | 2018-08-27 19:23 | OP ---
Operative Note - Note: Operative Date: 08/27/18 Pre-Operative Diagnosis: Missed Ab Operation: Suction, D&C Findings: Small RV uterus, (+) POC Post-Operative Diagnosis: Same as Pre-op Surgeon: Tray Treviño Anesthesiologist/GLAZE MAKER: Parveen Butt Anesthesia: General Specimens Removed: POC Estimated Blood Loss (mls): 30 Blood Volume Replaced (mls): 0 Fluid Volume Replaced (mls): 700 Operative Report Dictated: Yes
[2018-08-27] MEDS ORDERED: LACTATED RINGERS SOLUTION 1,000 ML IV SCH (19:45)
[2018-08-27 20:04] VITALS: PULSE 57
[2018-08-27 21:22] VITALS: BP 110/55; TEMP 98.5
--- NOTE | 2018-08-28 06:21 | OP ---
DATE OF OPERATION: 08/27/2018 PREOPERATIVE DIAGNOSIS: Missed at 6 weeks and 3 days of estimated gestational age. POSTOPERATIVE DIAGNOSIS: Missed at 6 weeks and 3 days of estimated gestational age. PROCEDURE: Surgical treatment of missed (suction dilatation and curettage). SURGEON: Sylvester Perry MD ANESTHESIOLOGIST: Parveen Butt MD ANESTHESIA: General. COMPLICATIONS: None. ESTIMATED BLOOD LOSS: 30 mL. INTRAVENOUS FLUIDS: 700 mL. PATHOLOGY: Products of conception. FINDINGS: Examination under anesthesia revealed a small retroverted uterus. No pelvic or adnexal masses. Suction curettage revealed products of conception. There were no retained products of conception noted at the end of the procedure. PROCEDURE DESCRIPTION: The patient was met preoperatively. Risks, benefits and alternatives of surgery were discussed in details. All questions were answered. The patient was brought to the OR with the IV running. She was placed on the surgical table in supine position. The general anesthesia was achieved without difficulty. The patient was then placed in a dorsal lithotomy position using adjustable Kr stirrups. She was examined under anesthesia with the findings as described above. The timeout was conducted as per standard protocol. The patient was then prepped and draped in the usual sterile fashion. A sterile speculum was introduced inside the vagina with good visualization of the cervix. The cervix was grasped with a single-tooth tenaculum. The cervical os was dilated to accommodate a size 23 Parkinson dilator. A 7-mm curet was then used to evacuate the products of conception using a suction curettage. Once all of the tissue was evacuated from the uterus good hemostasis was noted. The instruments were removed from the patient. Sponge, lap and instrument counts were correct. Once again good hemostasis was noted. The patient was returned to supine position. She was then transferred to recovery room in stable condition and awake. SYLVESTER PERRY M.D. [id number]
--- NOTE | 2018-08-29 16:57 | PATH ---
Surgical Pathology Report Patient Name: ANDREA VELASQUEZ Med. Rec. #: [id number] /Age/Gender: 1995 (Age: 22) / F Account: [id number] Location: [facility] OBS/COMMERCIAL CENSUS TAKER Taken: 08/27/2018 Received: 08/28/2018 Reported: 08/29/2018 Physicians: Tray Treviño M.D. PHYSICIAN EMERGENCY DEPT Specimen(s) Received PRODUCTS OF CONCEPTION Clinical History Missed Final Diagnosis PRODUCTS OF CONCEPTION, SUCTION D&C: CHORIONIC VILLI PRESENT, CONSISTENT WITH PRODUCTS OF CONCEPTION.. Electronically Signed Aleyda Castano M.D. Gross Description Received in formalin labeled "products of conception," is a 15.0 x 13.0 x 1.8 cm aggregate of bajwa red soft tissue fragments. Villous tissue is identified. No somatic tissue is identified. A insurance claims representative portion is submitted in one cassette. /08/28/2018 saudi08/28/2018
== END 2018-08-27 22:41 | disposition home or self-care (01) | DRG 770 ==
LOC: JER 12:02 → JERBED 16:15 → J3W 21:02
PROVIDERS: ADMIT Obstetrics & Gynecology; ATTEND Obstetrics & Gynecology
PROC: 10D17ZZ Extraction of Products of Conception, Retained, Via Natural or Artificial Opening (ICD-10-PCS; principal; 2018-08-27 17:00)
DX: O02.1 Missed abortion (principal); Z87.891 Personal history of nicotine dependence
CPT/HCPCS: 36415; 76817-TC; 80053; 81003; 84702; 84703; 85025; 85610; 86850; 86900; 86901; 87086; 88305-TC; 94760; 99283-25; J7030

== ENCOUNTER 2018-09-02 23:41 | Emergency (ER) | payer OTHER ==
[2018-09-03] MEDS ORDERED: METOCLOPRAMIDE HCL INJECTION 10 MG/2 ML VIAL IVPUSH STA (00:04)
[2018-09-03] MEDS ORDERED: SODIUM CHLORIDE 1,000 ML IV ONE (00:04)
--- NOTE | 2018-09-03 00:04 | PDOC ---
History of Present Illness - General History Source: Patient Exam Limitations: No Limitations - History of Present Illness Initial Comments: 22 yo F F w a recent D&C 3 days ago presents to the ER with a splitting headache which has been present for the past two days and the patient says she cannot stand the pain. She has tried taking motrin with no relief. She states that seeing any form of light is extremely painful for her and hearing loud noises are painful for her as well. The patient states she does not have a history of migraines and it is extremely rare for her to have a headache like this. She denies having any blurry vision or an aura associated with her symptoms. She denies having any abdominal pain since the procedure. LMP: Early May PCP: Dr. Balderas DUCK OPERATOR: Dr. Treviño PSH: D&C Allergies: Shellfish, pollen, dust, cat dander. NKDA <Star Sen - Last Filed: 09/03/18 01:08> <Yoly Wilder - Last Filed: 09/03/18 01:34> - General Chief Complaint: Headache Stated Complaint: HEADACHE Time Seen by Provider: 09/03/18 00:01 Past History - Past Medical History Asthma: No Cancer: No Cardiac Disorders: No COPD: No Diabetes: No HTN: No Seizures: No Thyroid Disease: No - Reproductive History Cervical CA: No Dysfunctional Uterine Bleeding: No Ectopic : No Endometrial CA: No Polycystic Ovaries: No Therapeutic (s) & number: Yes (1) Tubal Ligation: No - Immunization History Immunization Up to Date: Yes - Suicide/Smoking/Psychosocial Hx Smoking Status: No Smoking History: Never smoked Have you smoked in the past 12 months: No Number of Cigarettes Smoked Daily: 0 If you are a former smoker, when did you quit?: 10/2014 Hx Alcohol Use: No Drug/Substance Use Hx: No Substance Use Type: None Hx Substance Use Treatment: No <Star Sen - Last Filed: 09/03/18 01:08> <Yoly Wilder - Last Filed: 09/03/18 01:34> - Past Medical History Allergies/Adverse Reactions: Allergies Allergy/AdvReac Type Severity Reaction Status Date / Time shellfish derived Allergy Hives Verified 08/27/18 12:04 Home Medications: Ambulatory Orders Nitrofurantoin Monohyd/M-Cryst [Macrobid -] 100 mg PO BID #14 capsule 08/27/18 metroNIDAZOLE [Flagyl -] 500 mg PO BID #14 tablet 08/27/18 Review of Systems - Review of Systems Able to Perform ROS?: Yes Comments:: CONSTITUTIONAL: Absent: fever, no chills, no fatigue EYES: Absent: visual changes ENT: Absent: ear pain, no sore throat CARDIOVASCULAR: Absent: chest pain, no palpitations RESPIRATORY: Absent: cough, no SOB GI: Absent: abdominal pain, no nausea, no vomiting, no constipation, no diarrhea GENITOURINARY: Absent: dysuria, no frequency, no hematuria MUSKULOSKELETAL: Absent: back pain, no arthralgia, no myalgia SKIN: Absent: rash NEURO: Present: headache <Star Sen - Last Filed: 09/03/18 01:08> *Physical Exam - Physical Exam Comments: GENERAL: The patient is noticeably uncomfortable and has a blanket around her head bc light hurts. Well-nourished. HEENT: Normocephalic, atraumatic. PERRL, EOM intact. CARDIOVASCULAR: Normal S1, S2. Regular rate and rhythm. PULMONARY: No evidence of respiratory distress. Lungs clear to auscultation bilaterally. No wheezing, rales or rhonchi. ABDOMEN: Soft, non-distended, non-tender. EXTREMITIES: Normal ROM in all four extremities. No gross deformities. SKIN: Warm, dry. No rash NEUROLOGICAL: No focal neurological deficits. <Star Sen - Last Filed: 09/03/18 01:08> - Vital Signs Last Vital Signs Temp Pulse Resp BP Pulse Ox 97.4 F L 64 18 122/74 99 09/02/18 23:45 09/02/18 23:45 09/02/18 23:45 09/02/18 23:45 09/02/18 23:45 <Yoly Wilder - Last Filed: 09/03/18 01:34> ED Treatment Course - LABORATORY CBC & Chemistry Diagram: 09/03/18 00:20 09/03/18 00:20 <Star Sen - Last Filed: 09/03/18 01:08> - LABORATORY CBC & Chemistry Diagram: 09/03/18 00:20 09/03/18 00:20 - ADDITIONAL ORDERS Additional order review: Laboratory Results 09/03/18 09/03/18 09/03/18 00:20 00:20 00:20 PT with INR 11.40 INR 0.97 PTT (Actin FS) 34.5 Sodium 140 Potassium 4.3 Chloride 107 Carbon Dioxide 29 Anion Gap 4 L BUN 12 Creatinine 0.7 Creat Clearance w eGFR 106.68 Random Glucose 87 Calcium 9.0 Total Bilirubin 0.4 AST 39 H ALT 85 H Alkaline Phosphatase 58 Creatine Kinase 99 Troponin I < 0.02 Total Protein 7.4 Albumin 3.8 Beta HCG, Quant 1273.9 09/03/18 00:20 RBC 4.33 MCV 93.9 MCHC 34.0 RDW 13.6 MPV 10.0 Neutrophils % 56.5 Lymphocytes % 30.5 Monocytes % 8.4 Eosinophils % 4.0 D Basophils % 0.6 - Medications Given in the ED: ED Medications Discontinued Medications Generic Name Dose Route Start Last Admin Trade Name Freq PRN Reason Stop Dose Admin Acetaminophen 1,000 mg 09/03/18 00:05 09/03/18 00:37 Ofirmev Injection - IVPB 09/03/18 00:06 1,000 mg ONCE ONE Administration Diphenhydramine HCl 25 mg 09/03/18 00:05 09/03/18 00:37 Benadryl Injection - IVPUSH 09/03/18 00:06 25 mg ONCE ONE Administration Sodium Chloride 1,000 mls @ 1,000 mls/hr 09/03/18 00:04 09/03/18 00:37 Normal Saline - IV 09/03/18 01:03 1,000 mls/hr .Q1H ONE Administration Metoclopramide HCl 10 mg 09/03/18 00:04 09/03/18 00:37 Reglan Injection - IVPUSH 09/03/18 00:05 10 mg ONCE STA Administration <Yoly Wilder - Last Filed: 09/03/18 01:34> Medical Decision Making - Medical Decision Making 22 yo F F w a recent D&C 3 days ago presents to the ER with a splitting headache which has been present for the past two days and the patient says she cannot stand the pain. She has tried taking motrin with no relief. She states that seeing any form of light is extremely painful for her and hearing loud noises are painful for her as well. The patient states she does not have a history of migraines and it is extremely rare for her to have a headache like this. She denies having any blurry vision or an aura associated with her symptoms. She denies having any abdominal pain since the procedure. VS: WNL DDx IBNLT: headache - likely migraine, less likely tension or cluster, brain bleed - SAH vs epidural vs subdural vs intraparenchymal, complex migraine, electrolyte/metabolic disturbnce, pre-eclampsia Plan: Labs, urine, ekg, IV hydration, Analgesia, re-assess. Patient feels much better after analgesia Labs unremarkable Will DC w Pcp follow up. <Star Sen - Last Filed: 09/03/18 01:08> *DC/Admit/Observation/Transfer - Discharge Dispostion Decision to Admit order: No <Star Sen - Last Filed: 09/03/18 01:08> <Yoly Wilder - Last Filed: 09/03/18 01:34> Diagnosis at time of Disposition: Migraine - Discharge Dispostion Disposition: HOME Condition at time of disposition: Improved - Referrals Referrals: Maddy Jimenez MD [Primary Care Provider] - Andre Cárdenas MD [Staff Physician] - - Patient Instructions Printed Discharge Instructions: Migraine Headaches (Alternative Therapy), DI for Migraine Additional Instructions: You came into the ER with a headache. We believe you were having a migraine. Your bloodwork did not suggest you were having an infection. Drink plenty of fluids and take motrin or tylenol as needed for pain control. Please make sure to call up your primary care doctor in the next 3 to 5 days to make sure you are getting better and being taken care of. Come back to the ER immediately if your pain worsens, you become nauseous, start vomiting, have blurry vision, or any other new or worsening concerns. Thank you for coming to the [facility] ER. We hope you feel better soon! Print Language: ITALIAN
[2018-09-03] MEDS ORDERED: ACETAMINOPHEN 1000 MG/100 ML VIAL (NON FORMULARY) IVPB ONE (00:05)
[2018-09-03 00:09] VITALS: TEMP 97.4; BMI 25.1
--- NOTE | 2018-09-03 00:17 | PDOC ---
Attending Attestation - HPI HPI: 09/03/18 00:31 The patient is a 22 year old female with no PMH who presents to the ER for evaluation of a headache for the past 2 days. Patient describes the headache as "something hitting her head and feeling like her eyes are going to pop out." Patient admits to sonophobia and photophobia. Patient reports she had a D&C ON . Denies any history of migraines or vision changes. Patient has been eating normally at home. She notes that she does not usually drink water. The patient denies chest pain, shortness ofever, chills, nausea, vomit, diarrhea and constipation. Denies dysuria, frequency, urgency and hematuria. Allergies: NKA Past surgical history: Social history: No reported PCP: - Physicial Exam PE: 09/03/18 00:32 ADULT EXAM GENERAL: Awake, alert, and fully oriented, in no acute distress HEAD: No signs of trauma EYES: PERRLA, EOMI, sclera anicteric, conjunctiva clear (+) photophobia. ENT: Auricles normal inspection, hearing grossly normal, nares patent, oropharynx clear without exudates. Moist mucosa NECK: Normal ROM, supple, no lymphadenopathy, JVD, or masses LUNGS: Breath sounds equal, clear to auscultation bilaterally. No wheezes, and no crackles HEART: Regular rate and rhythm, normal S1 and S2, no murmurs, rubs or gallops ABDOMEN: Soft, nontender, normoactive bowel sounds. No guarding, no rebound. No masses EXTREMITIES: Normal range of motion, no edema. No clubbing or cyanosis. No cords , erythema, or tenderness NEUROLOGICAL: Cranial nerves II through XII grossly intact. Normal speech, normal gait SKIN: Warm, Dry, normal turgor, no rashes or lesions noted. <Adriana Prajapati - Last Filed: 09/03/18 00:31> - Resident Resident Name: Star Sen - ED Attending Attestation I have performed the following: I have examined & evaluated the patient, The case was reviewed & discussed with the resident, I agree w/resident's findings & plan - Medical Decision Making 09/03/18 01:38 Pt is feeling better with treatment in the ER; JON has resolved with hydration. She states that she "never drinks water" <Yoly Wilder - Last Filed: 09/03/18 01:39>
[2018-09-03] MEDS ORDERED: METOCLOPRAMIDE HCL INJECTION 10 MG/2 ML VIAL ONE (00:22)
[2018-09-03] MEDS ORDERED: ACETAMINOPHEN INJECTION 100 ML IVPB ONE (00:23)
[2018-09-03 00:40] LABS: BASO % 0.6 % (0-2.0); HEMATOCRIT 40.7 % (32.4-45.2); HEMOGLOBIN 13.8 GM/dL (10.7-15.3); LYMPH % 30.5 % (8-40); MCH 31.9 pg (25.7-33.7); MEAN CELL VOLUME 93.9 fl (80-96); MONO % 8.4 % (3.8-10.2); NEUT % 56.5 % (42.8-82.8); PLATELET COUNT 255 K/MM3 (134-434); RBC 4.33 M/mm3 (3.60-5.2); RDW 13.6 % (11.6-15.6); WHITE BLOOD COUNT 7.1 K/mm3 (4.0-10.0)
[2018-09-03 00:42] LABS: INR 0.97 (0.83-1.09); PROTHROMBIN TIME (PATIENT) 11.4 SEC (9.7-13.0)
[2018-09-03 00:44] LABS: ACTIVATED PTT 34.5 SECONDS (25.2-36.5)
[2018-09-03 00:57] LABS: ALBUMIN 3.8 g/dl (3.4-5.0); ALK PHOS 58 U/L (45-117); ANION GAP 4 MMOL/L (8-16); BILIRUBIN,TOTAL 0.4 mg/dL (0.2-1); BLOOD UREA NITROGEN 12 mg/dL (7-18); CHLORIDE 107 mmol/L (98-107); CO2 29 mmol/L (21-32); CREATININE 0.7 mg/dL (0.55-1.3); GLUCOSE,RANDOM 87 mg/dL (74-106); POTASSIUM 4.3 mmol/L (3.5-5.1); SGOT/AST 39 U/L (15-37); SGPT/ALT 85 U/L (13-61); SODIUM 140 mmol/L (136-145); TOT PROT 7.4 g/dl (6.4-8.2)
[2018-09-03 01:39] LABS: HCG,QUALITATIVE URINE Positive; PH,URINE 6.5 (5.0-8.0); URINE APPEARANCE CLOUDY; URINE BILIRUBIN NEGATIVE (NEGATIVE); URINE COLOR YELLOW; URINE GLUCOSE (UA) NEGATIVE (NEGATIVE); URINE KETONE TRACE (NEGATIVE); URINE LEUK ESTERASE NEGATIVE (NEGATIVE); URINE NITRITE NEGATIVE (NEGATIVE); URINE PROTEIN NEGATIVE (NEGATIVE)
[2018-09-03 01:51] VITALS: BP 105/52; PULSE 62
--- NOTE | 2018-09-03 10:26 | EKG ---
Test Reason : Blood Pressure : / mmHG Vent. Rate : 062 BPM Atrial Rate : 062 BPM P-R Int : 136 ms QRS Dur : 098 ms QT Int : 400 ms P-R-T Axes : 034 067 014 degrees QTc Int : 406 ms NORMAL SINUS RHYTHM INCOMPLETE RIGHT BUNDLE BRANCH BLOCK BORDERLINE ECG WHEN COMPARED WITH ECG OF 22-JAN-2015 12:57, NONSPECIFIC T WAVE ABNORMALITY NOW EVIDENT IN ANTERIOR LEADS Confirmed by ANIL FATIMA MD ([id number]) on 09/03/2018 10:26:39 AM Referred By: Confirmed By:ANIL FATIMA MD
== END 2018-09-03 01:45 | disposition home or self-care (01) ==
LOC: JER 23:41
PROC: 3E033NZ Introduction of Analgesics, Hypnotics, Sedatives into Peripheral Vein, Percutaneous Approach (ICD-10-PCS; principal; 2018-09-02)
PROC: 3E033GC Introduction of Other Therapeutic Substance into Peripheral Vein, Percutaneous Approach (ICD-10-PCS; 2018-09-02)
PROC: 3E033GC Introduction of Other Therapeutic Substance into Peripheral Vein, Percutaneous Approach (ICD-10-PCS; 2018-09-02)
DX: G43.909 Migraine, unspecified, not intractable, without status migrainosus (principal); Z98.890 Other specified postprocedural states
CPT/HCPCS: 36415; 80053; 81003; 82550; 84484; 84702; 84703; 85025; 85610; 85730; 86850; 86900; 86901; 93005; 93010; 99283-25; J0131; J7030

== ENCOUNTER 2021-01-16 08:15 | Inpatient (IN) | payer OTHER ==
[2021-01-16 10:02] VITALS: BMI 30.2
[2021-01-16 10:05] LABS: BASO % 0.6 % (0-2.0); EOS % 0.6 % (0-4.5); HEMATOCRIT 32.4 % (32.4-45.2); HEMOGLOBIN 11.3 GM/dL (10.7-15.3); LYMPH % 17.2 % (8-40); MCH 32.5 pg (25.7-33.7); MEAN CELL VOLUME 92.7 fl (80-96); MONO % 7.4 % (3.8-10.2); NEUT % 74.2 % (42.8-82.8); PLATELET COUNT 228 10^3/uL (134-434); RDW 12.9 % (11.6-15.6); WHITE BLOOD COUNT 9.7 K/mm3 (4.0-10.0)
[2021-01-16 10:11] LABS: INR 0.97 (0.83-1.09); PROTHROMBIN TIME (PATIENT) 11.7 SEC (9.7-13.0)
[2021-01-16 10:13] LABS: ACTIVATED PTT 27.9 SECONDS (25.2-36.5)
[2021-01-16] MEDS ORDERED: ELECTROLYTE-148 SOLN 1,000 ML IV SCH (10:15)
[2021-01-16 10:24] LABS: BLOOD UREA NITROGEN 7.8 mg/dL (7-18); CALCIUM 8.4 mg/dL (8.5-10.1)
[2021-01-16 10:29] LABS: CREATININE 0.6 mg/dL (0.55-1.3)
[2021-01-16] MEDS ORDERED: OXYTOCIN 30 UNITS in 0.9% NS 30 UNIT/500 ML INFUS.BAG IVPB SCH (12:30)
[2021-01-16] MEDS ORDERED: OXYTOCIN 30 UNITS in 0.9% NS 30 UNIT/500 ML INFUS.BAG IVPB ONE (12:46)
[2021-01-16] MEDS ORDERED: PCA PUMP NR ONE (14:17)
[2021-01-16] MEDS ORDERED: FENTANYL/BUPIVACAINE/NS/PF - PCEA - 50 ML DISP.SYRIN EP ONE (14:29)
[2021-01-16] MEDS: FENTANYL/BUPIVACAINE/NS/PF - PCEA - 50 ML DISP.SYRIN EP SCH (14:40)
[2021-01-16] MEDS ORDERED: NALOXONE HCL 0.4 MG/ML VIAL IVPUSH PRN (14:54)
[2021-01-16] MEDS ORDERED: OXYTOCIN 20 UNITS in 0.9% NS 20 UNIT/1,000 ML INFUS.BAG IV ONE (16:58)
[2021-01-16] MEDS ORDERED: WITCH HAZEL 50% (TUCKS) 40 PAD/JAR PAD TP PRN (17:33)
[2021-01-16] MEDS ORDERED: ACETAMINOPHEN 325 MG TABLET (FP) PO PRN (17:33)
[2021-01-16] MEDS ORDERED: BISACODYL 10 MG SUPP.RECT RC PRN (17:33)
[2021-01-16] MEDS ORDERED: METHYLERGONOVINE MALEATE 0.2 MG/1 ML AMP IM PRN (17:33)
[2021-01-16] MEDS ORDERED: BENZOCAINE 28 GM HEMORRHOIDAL OINTMENT TP PRN (17:33)
[2021-01-16] MEDS ORDERED: BENZOCAINE 20% 57 GM BOTTLE TP PRN (17:33)
[2021-01-16] MEDS ORDERED: OXYTOCIN 20 UNITS in 0.9% NS 20 UNIT/1,000 ML INFUS.BAG IV SCH (17:45)
[2021-01-17] MEDS: PRENATAL VITAMINS W/ FOLIC ACID TABLET (FP) PO SCH (09:00)
[2021-01-17 09:24] LABS: BASO % 0.2 % (0-2.0); EOS % 1.1 % (0-4.5); HEMATOCRIT 29.1 % (32.4-45.2); HEMOGLOBIN 10.3 GM/dL (10.7-15.3); LYMPH % 16.1 % (8-40); MCH 32.6 pg (25.7-33.7); MCHC 35.3 g/dl (32.0-36.0); MEAN CELL VOLUME 92.3 fl (80-96); MEAN PLT VOLUME 9.4 fl (7.5-11.1); MONO % 6.4 % (3.8-10.2); NEUT % 76.2 % (42.8-82.8); PLATELET COUNT 215 10^3/uL (134-434); RBC 3.16 M/mm3 (3.60-5.2); RDW 12.8 % (11.6-15.6); WHITE BLOOD COUNT 9.9 K/mm3 (4.0-10.0)
[2021-01-17] MEDS: IBUPROFEN 600 MG TABLET (FP) PO PRN (21:25)
[2021-01-17] MEDS ORDERED: SENNOSIDES/DOCUSATE COMBO (SENNA PLUS) TABLET (UD) PO PRN (22:00)
[2021-01-18] MEDS: FENTANYL/BUPIVACAINE/NS/PF - PCEA - 50 ML DISP.SYRIN EP SCH (06:47)
[2021-01-18] MEDS: IBUPROFEN 600 MG TABLET (FP) PO PRN (07:40)
[2021-01-18] MEDS: PRENATAL VITAMINS W/ FOLIC ACID TABLET (FP) PO SCH ×2 (07:40→09:02)
[2021-01-18 09:06] VITALS: BP 127/72; PULSE 65; TEMP 98.4
== END 2021-01-18 12:15 | disposition home or self-care (01) | DRG 807 ==
LOC: JDEL 08:15 → JLDR 09:00 → J3W 20:04
PROVIDERS: ADMIT Obstetrics & Gynecology; ATTEND Obstetrics & Gynecology
PROC: 10E0XZZ Delivery of Products of Conception, External Approach (ICD-10-PCS; principal; 2021-01-16)
PROC: 10907ZC Drainage of Amniotic Fluid, Therapeutic from Products of Conception, Via Natural or Artificial Opening (ICD-10-PCS; 2021-01-16)
DX: O63.9 Long labor, unspecified (principal); Z37.0 Single live birth; O90.81 Anemia of the puerperium; D64.9 Anemia, unspecified; Z3A.37 37 weeks gestation of pregnancy
CPT/HCPCS: 36415; 59025; 59409; 80048; 85025; 85610; 85730; 86780; 86850; 86900; 86901; C9803; U0003; U0005

== ENCOUNTER 2021-01-29 14:31 | Emergency (ER) | payer OTHER ==
[2021-01-29] MEDS ORDERED: ONDANSETRON 4 MG/2 ML VIAL IVPUSH ONE (14:54)
[2021-01-29] MEDS ORDERED: MAGNESIUM SULF 50% (8.12 MEQ/2 ML-1 GM VIAL) IVPB ONE ×6 (15:00→17:31)
[2021-01-29] MEDS ORDERED: SODIUM CHLORIDE 1,000 ML IV SCH (15:00)
[2021-01-29] MEDS ORDERED: morphine CARPU-JECT 4 MG/1 ML DISP.SYRIN IVPUSH ONE (15:07)
[2021-01-29] MEDS ORDERED: ACETAMINOPHEN 1000 MG/100 ML VIAL (NON FORMULARY) IVPB ONE (15:09)
[2021-01-29] MEDS ORDERED: MORPHINE SULFATE 2 MG/ML VIAL ONE (15:17)
[2021-01-29] MEDS ORDERED: ONDANSETRON 4 MG/2 ML VIAL ONE (15:17)
[2021-01-29] MEDS ORDERED: ACETAMINOPHEN INJECTION 100 ML IVPB ONE (15:17)
[2021-01-29] MEDS ORDERED: LORazepam 2 MG/ML SDV VIAL ONE ×2 (15:22→15:43)
[2021-01-29] MEDS ORDERED: MAGNESIUM SULF 50% (8.12 MEQ/2 ML-1 GM VIAL) ONE ×2 (15:23→15:30)
[2021-01-29] MEDS ORDERED: RAPID SEQUENCE INTUBATION KIT NR ONE (15:44)
[2021-01-29] MEDS ORDERED: ROCURONIUM BROMIDE 100 MG/10 ML VIAL ONE (15:46)
[2021-01-29 15:55] VITALS: TEMP 97.9; BMI 29.5
[2021-01-29] MEDS ORDERED: MAGNESIUM SULFATE IN WATER 2 GM/50 ML IVPB IVPB ONE ×2 (15:55→18:00)
[2021-01-29] MEDS ORDERED: PROPOFOL 1,000,000 MCG/100 ML VIAL IVPB SCH (16:00)
[2021-01-29] MEDS ORDERED: PROPOFOL 1,000,000 MCG/100 ML VIAL ONE (16:01)
[2021-01-29] MEDS ORDERED: LABETALOL HCL 5 MG/1 ML (100MG/20 ML VIAL) IVPUSH ONE ×2 (16:06→17:40)
[2021-01-29 16:11] LABS: BASO % 0.5 % (0-2.0); EOS % 1.1 % (0-4.5); HEMATOCRIT 41.1 % (32.4-45.2); HEMOGLOBIN 13.9 GM/dL (10.7-15.3); LYMPH % 18.9 % (8-40); MCH 31.5 pg (25.7-33.7); MCHC 33.7 g/dl (32.0-36.0); MEAN CELL VOLUME 93.3 fl (80-96); MONO % 3.8 % (3.8-10.2); NEUT % 75.7 % (42.8-82.8); PLATELET COUNT 413 10^3/uL (134-434); RBC 4.41 M/mm3 (3.60-5.2); WHITE BLOOD COUNT 8.1 K/mm3 (4.0-10.0)
[2021-01-29 16:33] LABS: INR 1.01 (0.83-1.09); PROTHROMBIN TIME (PATIENT) 12.4 SEC (9.7-13.0)
[2021-01-29 16:36] LABS: ACTIVATED PTT 35.8 SECONDS (25.2-36.5); CHLORIDE 110 mmol/L (98-107); SODIUM 144 mmol/L (136-145)
[2021-01-29] MEDS ORDERED: LORazepam 2 MG/ML SDV VIAL IVPUSH ONE (16:37)
[2021-01-29 16:39] LABS: CALCIUM 9.3 mg/dL (8.5-10.1); GLUCOSE,RANDOM 87 mg/dL (74-106)
[2021-01-29 16:40] LABS: ALBUMIN 3.5 g/dl (3.4-5.0); ANION GAP 6 MMOL/L (8-16); BLOOD UREA NITROGEN 6.9 mg/dL (7-18); CO2 28 mmol/L (21-32)
[2021-01-29 16:42] LABS: CREATININE 0.9 mg/dL (0.55-1.3); TRIGLYCERIDES 127 mg/dL (0-150)
[2021-01-29 16:43] LABS: CHOLESTEROL 355 mg/dL (50-200); SGOT/AST 16 U/L (15-37); SGPT/ALT 23 U/L (13-61)
[2021-01-29 16:44] LABS: LDL CHOLESTEROL (ONLY SJRH) 237 mg/dL (5-100); TOT PROT 7.4 g/dl (6.4-8.2)
[2021-01-29 16:45] LABS: ALK PHOS 99 U/L (45-117); HDL CHOLESTEROL 71 mg/dL (40-60)
[2021-01-29] MEDS ORDERED: ROCURONIUM BROMIDE 50 MG/5 ML VIAL IV ONE (17:12)
[2021-01-29] MEDS ORDERED: ETOMIDATE 20 MG/10 ML AMPUL IVPUSH ONE (17:12)
[2021-01-29] MEDS ORDERED: MIDAZOLAM HCL 2 MG/2 ML SINGLE DOSE VIAL ONE ×2 (17:40→17:48)
[2021-01-29] MEDS ORDERED: MIDAZOLAM HCL 2 MG/2 ML SINGLE DOSE VIAL IVPUSH ONE (17:40)
[2021-01-29] MEDS ORDERED: MIDAZOLAM HCL 5 MG/1 ML Single Dose Vial IVPUSH ONE (17:47)
[2021-01-29 20:57] VITALS: BP 145/95; PULSE 107
== END 2021-01-29 18:35 | disposition short-term general hospital (02) ==
LOC: JER 14:31
DX: I16.0 Hypertensive urgency (principal); I67.83 Posterior reversible encephalopathy syndrome; O15.9 Eclampsia, unspecified as to time period
CPT/HCPCS: 36415; 70450-TC; 71045-TC-FY; 80053; 80061; 82550; 82962; 83036; 83735; 84484; 85025; 85610; 85730; 86850; 86900; 86901; 93005; 93010; 99291; 99292; C9803; J0131; U0003; U0005

== ENCOUNTER 2021-04-28 03:15 | Emergency (ER) | payer OTHER ==
[2021-04-28 03:42] VITALS: BP 113/72; PULSE 78; TEMP 98.1; BMI 26.5
[2021-04-28 05:23] LABS: EPI CELLS 21 /uL (0-25.1); HYALINE CASTS 28 /uL (0-3.1); PH,URINE 5.5 (5.0-8.0); URINE APPEARANCE CLOUDY; URINE BACTERIA 537 /uL (0-1359); URINE BILIRUBIN NEGATIVE (NEGATIVE); URINE COLOR YELLOW; URINE GLUCOSE (UA) NEGATIVE (NEGATIVE); URINE KETONE NEGATIVE (NEGATIVE); URINE LEUK ESTERASE 2+ (NEGATIVE); URINE NITRITE NEGATIVE (NEGATIVE); URINE PROTEIN TRACE (NEGATIVE); URINE RBC 495 /uL (0-23.9); URINE WBC 729 /uL (0-25.8)
[2021-04-28 05:49] LABS: ALBUMIN 3.6 g/dl (3.4-5.0); BLOOD UREA NITROGEN 9.6 mg/dL (7-18); CALCIUM 9.7 mg/dL (8.5-10.1); HCG,QUALITATIVE URINE Negative
[2021-04-28 05:52] LABS: CREATININE 0.8 mg/dL (0.55-1.3)
[2021-04-28 05:54] LABS: BILIRUBIN,TOTAL 0.6 mg/dL (0.2-1); TOT PROT 7.4 g/dl (6.4-8.2)
[2021-04-28 06:05] LABS: BASO % 0.6 % (0-2.0); EOS % 2.1 % (0-4.5); HEMOGLOBIN 12.8 GM/dL (10.7-15.3); LYMPH % 25.7 % (8-40); MCH 30.4 pg (25.7-33.7); MCHC 33.6 g/dl (32.0-36.0); MEAN CELL VOLUME 90.4 fl (80-96); MEAN PLT VOLUME 10.4 fl (7.5-11.1); MONO % 6.3 % (3.8-10.2); NEUT % 65.3 % (42.8-82.8); PLATELET COUNT 310 10^3/uL (134-434); RDW 12.7 % (11.6-15.6); WHITE BLOOD COUNT 8.1 K/mm3 (4.0-10.0)
[2021-04-28] MEDS ORDERED: CEFTRIAXONE 1,000 MG in DEXTROSE 5%-WATER - 50 ML IVPB ONE (07:13)
[2021-04-28] MEDS ORDERED: CEFTRIAXONE 1 GM/50 ML BAG ONE (07:30)
[2021-04-28] MEDS ORDERED: KETOROLAC TROMETHAMINE 15 MG/ML VIAL ONE (08:55)
[2021-04-28] MEDS ORDERED: KETOROLAC TROMETHAMINE 15 MG/ML VIAL IVPUSH ONE (08:55)
[2021-04-28 11:13] LABS: URINE CRYSTALS CALCIUM OXALATE /hpf
== END 2021-04-28 11:40 | disposition home or self-care (01) ==
LOC: JER 03:15
PROC: 3E033GC Introduction of Other Therapeutic Substance into Peripheral Vein, Percutaneous Approach (ICD-10-PCS; principal; 2021-04-28)
DX: N39.0 Urinary tract infection, site not specified (principal); R10.2 Pelvic and perineal pain
CPT/HCPCS: 36415; 74177-TC; 76705-TC; 76830-TC; 80053; 81003; 84703; 85025; 87086; 99285-25; Q9967

== ENCOUNTER 2022-03-26 14:41 | Emergency (ER) | payer OTHER ==
[2022-03-26 15:02] VITALS: BP 127/73; PULSE 63; RESP 17; TEMP 98.3; BMI 23.9
[2022-03-26] MEDS ORDERED: METHOCARBAMOL 500 MG TABLET PO ONE (15:32)
[2022-03-26] MEDS ORDERED: KETOROLAC TROMETHAMINE 30 MG/1 ML VIAL IM ONE (15:32)
[2022-03-26] MEDS ORDERED: METHOCARBAMOL 500 MG TABLET ONE (17:34)
[2022-03-26] MEDS ORDERED: KETOROLAC TROMETHAMINE 30 MG/1 ML VIAL ONE (17:35)
== END 2022-03-26 18:30 | disposition home or self-care (01) ==
LOC: JER 14:41
PROC: 3E0233Z Introduction of Anti-inflammatory into Muscle, Percutaneous Approach (ICD-10-PCS; principal; 2022-03-26)
DX: M25.521 Pain in right elbow (principal); V49.40XA Driver injured in collision with unspecified motor vehicles in traffic accident, initial encounter
CPT/HCPCS: 73030-TC-RT-FY; 73070-TC-RT-FY; 99284-25

== ENCOUNTER 2022-06-20 11:58 | Emergency (ER) | payer OTHER ==
[2022-06-20 12:08] VITALS: BP 121/61; PULSE 90; RESP 18; TEMP 98.2; BMI 25.1
[2022-06-20] MEDS ORDERED: METHOCARBAMOL 500 MG TABLET PO ONE (14:01)
[2022-06-20] MEDS ORDERED: KETOROLAC TROMETHAMINE 15 MG/ML VIAL IM ONE (14:01)
[2022-06-20] MEDS ORDERED: KETOROLAC TROMETHAMINE 15 MG/ML VIAL ONE (14:08)
[2022-06-20] MEDS ORDERED: METHOCARBAMOL 500 MG TABLET ONE (14:08)
== END 2022-06-20 15:33 | disposition home or self-care (01) ==
LOC: JERFT 11:58 → JER 11:58 → JERFT 15:33
PROC: 3E023GC Introduction of Other Therapeutic Substance into Muscle, Percutaneous Approach (ICD-10-PCS; principal; 2022-06-20)
DX: M54.50 Low back pain, unspecified (principal)
CPT/HCPCS: 72100-TC-FY; 99284-25

== ENCOUNTER 2023-08-08 23:16 | Emergency (ER) | payer OTHER ==
[2023-08-08 23:55] VITALS: BMI 24.0
[2023-08-09] MEDS ORDERED: ONDANSETRON 4 MG/2 ML VIAL ONE (00:34)
[2023-08-09] MEDS ORDERED: ACETAMINOPHEN INJECTION 100 ML IVPB ONE (00:34)
[2023-08-09] MEDS ORDERED: FAMOTIDINE 20 MG/50 ML IVPB 20 MG/50 ML MG IVPB ONE (00:34)
[2023-08-09] MEDS: ACETAMINOPHEN 1000 MG/100 ML BAG IVPB ONE (01:02)
[2023-08-09] MEDS: ONDANSETRON 4 MG/2 ML VIAL IVPUSH ONE (01:02)
[2023-08-09] MEDS: LACTATED RINGERS SOLUTION 1000 ML INFUS.BAG IV ONE (01:02)
[2023-08-09] MEDS: FAMOTIDINE 20 MG/50 ML IVPB 20 MG/50 ML MG IVPB ONE (01:02)
[2023-08-09 01:07] LABS: BASO % 0.4 % (0-2.0); EOS % 0.4 % (0-4.5); HEMATOCRIT 40.4 % (32.4-45.2); MCH 32.4 pg (25.7-33.7); MCHC 34.6 g/dl (32.0-36.0); MEAN CELL VOLUME 93.5 fl (80-96); MEAN PLT VOLUME 9.8 fl (7.5-11.1); MONO % 5.2 % (3.8-10.2); PLATELET COUNT 279 10^3/uL (134-434); RBC 4.32 M/mm3 (3.60-5.2); RDW 13.1 % (11.6-15.6); WHITE BLOOD COUNT 10.5 K/mm3 (4.0-10.0)
[2023-08-09 01:10] LABS: EPI CELLS >36 /uL (0-25.1); HYALINE CASTS 4 /uL (0-3.1); URINE APPEARANCE CLOUDY; URINE BACTERIA 1531 /uL (0-1359); URINE BILIRUBIN NEGATIVE (NEGATIVE); URINE COLOR YELLOW; URINE GLUCOSE (UA) NEGATIVE (NEGATIVE); URINE KETONE 1+ (NEGATIVE); URINE LEUK ESTERASE NEGATIVE (NEGATIVE); URINE NITRITE NEGATIVE (NEGATIVE); URINE PROTEIN 1+ (NEGATIVE); URINE RBC 6 /uL (0-23.9); URINE WBC 10 /uL (0-25.8)
[2023-08-09 01:11] LABS: HCG,QUALITATIVE URINE Negative
[2023-08-09 01:20] LABS: POTASSIUM 4.3 mmol/L (3.5-5.1)
[2023-08-09 01:22] LABS: CALCIUM 9.4 mg/dL (8.5-10.1)
[2023-08-09 01:23] LABS: ALBUMIN 3.6 g/dl (3.4-5.0); BLOOD UREA NITROGEN 13.5 mg/dL (7-18)
[2023-08-09 01:26] LABS: CREATININE 0.8 mg/dL (0.55-1.3)
[2023-08-09 01:27] LABS: TOT PROT 7.5 g/dl (6.4-8.2)
[2023-08-09 03:04] VITALS: BP 121/78; PULSE 80; RESP 18; TEMP 98
== END 2023-08-09 03:05 | disposition home or self-care (01) ==
LOC: JER 23:16
PROC: 3E033GC Introduction of Other Therapeutic Substance into Peripheral Vein, Percutaneous Approach (ICD-10-PCS; principal; 2023-08-09)
PROC: 3E030NZ Introduction of Analgesics, Hypnotics, Sedatives into Peripheral Vein, Open Approach (ICD-10-PCS; 2023-08-09)
PROC: 3E030GC Introduction of Other Therapeutic Substance into Peripheral Vein, Open Approach (ICD-10-PCS; 2023-08-09)
DX: R11.2 Nausea with vomiting, unspecified (principal); R10.816 Epigastric abdominal tenderness; Z20.822 Contact with and (suspected) exposure to COVID-19
CPT/HCPCS: 0241U-QW; 36415; 80053; 81003; 83690; 83735; 84703; 85025; 87086; 99284-25; J0131

== ENCOUNTER 2024-01-23 09:38 | Emergency (ER) | payer SELFPAY ==
[2024-01-23 09:49] VITALS: BP 117/81; PULSE 66; RESP 16; TEMP 97.8; BMI 24.7
[2024-01-23] MEDS ORDERED: METOCLOPRAMIDE HCL INJECTION 10 MG/2 ML VIAL ONE (10:09)
[2024-01-23] MEDS ORDERED: ACETAMINOPHEN INJECTION 100 ML ONE (10:10)
[2024-01-23] MEDS: ACETAMINOPHEN 1000 MG/100 ML BAG IVPB ONE (10:25)
[2024-01-23] MEDS: METOCLOPRAMIDE HCL INJECTION 10 MG/2 ML VIAL IVPB ONE (10:26)
[2024-01-23 10:30] LABS: HEMATOCRIT 41.2 % (32.4-45.2); HEMOGLOBIN 13.2 G/dL (10.7-15.3); MEAN PLT VOLUME 9.9 fl (7.5-11.1); PLATELET COUNT 271.4 10^3/uL (134-434); RBC 4.25 10^6/uL (3.60-5.2); RDW 14.7 % (11.6-15.6); WHITE BLOOD COUNT 4.6 10^3/uL (4.0-10.8)
[2024-01-23 10:35] LABS: HCG,QUALITATIVE URINE Negative
[2024-01-23 10:39] LABS: ALBUMIN 4.4 g/dl (3.4-5.0); BILIRUBIN,TOTAL 0.8 mg/dl (0.2-1); CALCIUM 9.7 mg/dl (8.5-10.1); CREATININE 0.8 mg/dl (0.6-1.3); POTASSIUM 3.9 mmol/L (3.5-5.1); TOT PROT 7.2 g/dl (6.4-8.2)
[2024-01-23] MEDS: SODIUM CHLORIDE 1,000 ML IV STA (10:41)
[2024-01-23 10:46] LABS: PLATELET ESTIMATE ADEQUATE
== END 2024-01-23 12:39 | disposition home or self-care (01) ==
LOC: FER 09:38
PROC: 3E033NZ Introduction of Analgesics, Hypnotics, Sedatives into Peripheral Vein, Percutaneous Approach (ICD-10-PCS; principal; 2024-01-23)
PROC: 3E033GC Introduction of Other Therapeutic Substance into Peripheral Vein, Percutaneous Approach (ICD-10-PCS; 2024-01-23)
PROC: 3E0337Z Introduction of Electrolytic and Water Balance Substance into Peripheral Vein, Percutaneous Approach (ICD-10-PCS; 2024-01-23)
DX: R51.9 Headache, unspecified (principal); G89.29 Other chronic pain; R11.0 Nausea; Z20.822 Contact with and (suspected) exposure to COVID-19
CPT/HCPCS: 0241U-QW; 36415; 70450-TC; 80053; 81003; 84703; 85027; 99284-25; J0131

== ENCOUNTER 2024-03-05 13:36 | Inpatient (IN) | payer OTHER ==
[2024-03-05 14:18] LABS: HCG,QUALITATIVE URINE Positive
[2024-03-05] MEDS ORDERED: ACETAMINOPHEN INJECTION 100 ML ONE (15:09)
[2024-03-05] MEDS: ACETAMINOPHEN 1000 MG/100 ML BAG IVPB ONE (15:13)
[2024-03-05 15:27] LABS: INR 0.99 (0.83-1.09); PROTHROMBIN TIME (PATIENT) 11.3 SEC (9.7-13.0)
[2024-03-05 15:31] LABS: HEMOGLOBIN 13.4 G/dL (10.7-15.3); MCH 32.8 pg (25.7-33.7); MCHC 33.4 g/dl (32.0-36.0); MEAN CELL VOLUME 98.3 fl (80-96); MEAN PLT VOLUME 10.8 fl (7.5-11.1); PLATELET COUNT 239.2 10^3/uL (134-434); RBC 4.07 10^6/uL (3.60-5.2); RDW 13.6 % (11.6-15.6); WHITE BLOOD COUNT 8.7 10^3/uL (4.0-10.8)
[2024-03-05 15:40] LABS: ALBUMIN 4.5 g/dl (3.4-5.0); BILIRUBIN,TOTAL 0.7 mg/dl (0.2-1); CALCIUM 9.8 mg/dl (8.5-10.1); CREATININE 0.8 mg/dl (0.6-1.3); POTASSIUM 3.8 mmol/L (3.5-5.1); TOT PROT 7.1 g/dl (6.4-8.2)
[2024-03-05 16:16] LABS: PLATELET ESTIMATE ADEQUATE
[2024-03-05] MEDS: ONDANSETRON 4 MG/2 ML VIAL IVPUSH ONE (17:02)
[2024-03-05] MEDS ORDERED: ONDANSETRON 4 MG/2 ML VIAL ONE ×2 (17:02→20:33)
[2024-03-05] MEDS: morphine CARPU-JECT 2 MG/1 ML DISP.SYRIN IVPUSH ONE (17:10)
[2024-03-05] MEDS ORDERED: LIDOCAINE HCL/PF 2% SDV 5ML VIAL ONE (17:16)
[2024-03-05] MEDS ORDERED: SUCCINYLCHOLINE CHLORIDE 200 MG/10 ML SYRINGE ONE (17:16)
[2024-03-05] MEDS ORDERED: PROPOFOL 20 ML ONE (17:16)
[2024-03-05] MEDS ORDERED: MIDAZOLAM HCL 2 MG/2 ML SINGLE DOSE VIAL ONE (17:17)
[2024-03-05] MEDS ORDERED: ROCURONIUM BROMIDE 50 MG/5 ML SYRINGE ONE (17:20)
[2024-03-05] MEDS: SODIUM CHLORIDE 0.9% 1000 ML INFUS.BAG IV ONE (17:40)
[2024-03-05] MEDS ORDERED: BUPIVACAINE HCL/PF 0.25% (2.5MG/ML) 10 ML VIAL ONE (18:14)
[2024-03-05] MEDS ORDERED: ceFAZolin SODIUM 1 GM VIAL ONE (19:50)
[2024-03-05] MEDS ORDERED: DEXAMETHASONE SOD PHOSPHATE 4 MG/1 ML VIAL ONE (19:50)
[2024-03-05] MEDS: BUPIVACAINE HCL/PF 0.25% (2.5MG/ML) 10 ML VIAL IJ ONE (20:04)
[2024-03-05] MEDS ORDERED: KETOROLAC TROMETHAMINE 30 MG/1 ML VIAL ONE (20:33)
[2024-03-05] MEDS ORDERED: SUGAMMADEX SODIUM 200 MG/2 ML VIAL ONE (21:14)
[2024-03-05] MEDS: ACETAMINOPHEN 1000 MG/100 ML BAG IVPB SCH (21:27)
[2024-03-05] MEDS ORDERED: DEXTROSE 5%-0.45% SALINE 1,000 ML IV SCH (21:30)
[2024-03-05] MEDS ORDERED: ONDANSETRON 4 MG/2 ML VIAL IVPUSH PRN (21:40)
[2024-03-05] MEDS ORDERED: PROMETHAZINE HCL 25 MG/1 ML VIAL IVPB PRN (21:40)
[2024-03-05] MEDS: LACTATED RINGERS SOLUTION 1,000 ML/1,000 ML INFUS.BAG IV SCH (21:42)
[2024-03-05 23:41] VITALS: BMI 25.4
[2024-03-06] MEDS: oxyCODONE HCL 5 MG TABLET PO PRN ×2 (03:03→08:05)
[2024-03-06] MEDS: ONDANSETRON 4 MG/2 ML VIAL IVPUSH PRN (03:04)
[2024-03-06 03:37] VITALS: RESP 18
[2024-03-06] MEDS: IBUPROFEN 800 MG/8 ML IJ IVPB SCH (04:51)
[2024-03-06] MEDS: LACTATED RINGERS SOLUTION 1,000 ML IV SCH (07:39)
[2024-03-06] MEDS: AZITHROMYCIN 500 MG TABLET PO ONE (09:15)
[2024-03-06] MEDS ORDERED: AZITHROMYCIN 600 MG TABLET PO ONE (10:00)
[2024-03-06 10:34] LABS: BASO % 0.1 % (0-2.0); HEMATOCRIT 37.3 % (32.4-45.2); HEMOGLOBIN 12.8 GM/dL (10.7-15.3); LYMPH % 7.6 % (8-40); MCH 32.6 pg (25.7-33.7); MCHC 34.4 g/dl (32.0-36.0); MONO % 2.7 % (3.8-10.2); NEUT % 89.6 % (42.8-82.8); PLATELET COUNT 220 10^3/uL (134-434); RBC 3.92 M/mm3 (3.60-5.2); WHITE BLOOD COUNT 9.9 K/mm3 (4.0-10.0)
[2024-03-06] MEDS: IBUPROFEN 600 MG TABLET (FP) PO SCH (10:56)
[2024-03-06] MEDS: ACETAMINOPHEN 500 MG TABLET (FP) PO SCH (12:47)
[2024-03-06] MEDS ORDERED: DOCUSATE SODIUM 100 MG CAPSULE (FP) PO PRN (15:07)
[2024-03-06] MEDS ORDERED: POLYETHYLENE GLYCOL (HEALTHYLAX) 3350 17 GM PACKET PO PRN (15:08)
[2024-03-06] MEDS: BISACODYL 10 MG SUPP.RECT PR PRN (15:46)
[2024-03-08] MEDS: FLUCONAZOLE 150 MG TABLET PO ONE (13:49)
[2024-03-08 18:10] VITALS: BP 114/62; PULSE 60; TEMP 98.8
== END 2024-03-08 14:21 | disposition home or self-care (01) | DRG 545 ==
LOC: FER 13:36 → JASUSAT 16:57 → J2C 19:27 → J6W 23:25 → J5S 03-06 09:56 → JASUSAT 03-06 09:57 → J5S 03-06 14:32
PROVIDERS: ADMIT Obstetrics & Gynecology; ATTEND Obstetrics & Gynecology
PROC: 10T24ZZ Resection of Products of Conception, Ectopic, Percutaneous Endoscopic Approach (ICD-10-PCS; principal; 2024-03-05 19:00)
DX: O00.112 Left tubal pregnancy with intrauterine pregnancy (principal)
CPT/HCPCS: 36415; 76817-TC; 80053; 81003; 81015; 84702; 84703; 85025; 85027; 85610; 85730; 86850; 86900; 86901; 87077; 87086; 88305-TC; 94760; 99285-25; J0131